=== PATIENT | male | born 1975 | race Caucasian/White ===

== ENCOUNTER 2025-05-05 08:57 | Outpatient (AMB) | payer BC, SELFPAY ==
--- NOTE | 2025-05-05 08:58 | MHC.PC.OV ---
Vital Signs 05/05/25 09:06 Height 6 ft 3.59 in Weight 258 lb BMI 31.7 BP 142/96 H Respiration 14 Pulse 66 Pulse Source Pulse Oximeter Temp 98.2 F Temp Source Temporal Artery Scan Pulse Oximetry (%) 98 Oxygen Delivery Method Room Air Intake Visit Reasons: Establish Care/ Dr. Salgado Steel Box Toe Inserter Required: No Accompanied by: Self / Same As Patient Allergies No Known Allergies (No Known Allergies*) Allergy (Unverified 05/05/25 08:59) Tobacco use date assessed: 05/05/25 Dental Screening Dental Screen Date: 05/05/25 Did you have a dental visit in the last 12 months?: No Did you have a dental problem in the last 6 months where you did not have access to dental care?: No Was dental information given to patient?: Patient has dentist [facility] Surgical History History of colonoscopy (~12/20/22) Family History (Updated 05/05/25 @ 09:10 by KILLIAN Sorto) Father Pancreatic cancer Mother BP (high blood pressure) Alcohol abuse Social History (Updated 05/05/25 @ 09:14 by KILLIAN Sorto) Housing: House Alcohol intake: current Alcohol intake frequency: does not drink Patient Tobacco Use Status: Current everyday Tobacco user (chews tabacco) service: No Current occupational status: employed Cognitive needs: No Hearing needs: No Vision needs: Yes (reading glasses) Questionnaire PHQ-9 Over the last 2 weeks, how often have you been bothered by any of the following problems? 1. Little interest or pleasure in doing things: not at all 2. Feeling down, depressed, or hopeless: not at all 3. Trouble falling or staying asleep, or sleeping too much: not at all 4. Feeling tired or having little energy: not at all 5. Poor appetite or overeating: not at all 6. Feeling bad about yourself - or that you are a failure or have let yourself or your family down: not at all 7. Trouble concentrating on things, such as reading the newspaper or watching television: not at all 8. Moving or speaking so slowly that other people could have noticed. Or the opposite - being so fidgety or restless that you have been moving around a lot more than usual: not at all 9. Thoughts that you would be better off or of hurting yourself in some way: not at all Total score: 0 Source: Developed by Drs. Dell Buck, Anderson Chakraborty and colleagues, with an educational cong from [employer]. Thrive Questionnaire Date Thrive assessed: 05/05/25 I am a: Patient What is your living situation today?: I have a steady place to live Within the past 12 months, did the food you bought not last and you didn't have the money to get more?: Never true Within the past 12 months, did you worry whether your food would run out before you got money to buy more?: Never true Do you have trouble paying for medicines?: No Do you have trouble getting transportation to medical appointments?: No Do you have trouble paying your heating and electricity bill?: No Do you have trouble taking care of your child, family member or friend?: No Do you have trouble with day-to-day activities such as bathing, preparing meals, shopping, managing finances, etc.?: No Are you currently unemployed and looking for a job?: No Are you interested in more education?: No THRIVE Score: 0 AUDIT C Alcohol Use Questionnaire (AUDIT-C) 1. How often do you have a drink containing alcohol?: Never 3. How often do you have six or more drinks on one occasion?: Never Total Score: 0 FAUSTINO-7 AMB Questionnaire FAUSTINO-7 Date FAUSTINO - 7 assessed: 05/05/25 Feeling nervous, anxious, or on edge: 1 = Several days Not being able to stop or control worryin = Not at all Worrying too much about different things: 0 = Not at all Trouble relaxin = Several days Being so restless that it is hard to sit still: 1 = Several days Becoming easily annoyed or irritable: 1 = Several days Feeling afraid as if something awful might happen: 0 = Not at all Total FAUSTINO-7 score (0-4 normal; 5-9 mild; 10-14 moderate; 15-21 severe): 4 Source: Developed by Julieth Brar Kurt Kroenke and colleagues, with an educational cong from [employer]. Physical exam (Primary Care) Vital Signs: Last Vital Signs Temp 98.2 F 05/05/25 09:06 Pulse 66 05/05/25 09:06 Resp 14 05/05/25 09:06 BP 142/96 H 05/05/25 09:06 Pulse Ox 98 05/05/25 09:06 Oxygen Delivery Method Room Air 05/05/25 09:06 BMI result Body Mass Index 31.7 Tobacco/Smoking Status: Tobacco use Status Tobacco use date assessed 05/05/25 05/05/25 09:04 Patient Tobacco Use Status Current everyday Tobacco ( 05/05/25 09:14 chews tabacco) PHQ-9: PHQ-9 Score PHQ-9: Total score 0 05/05/25 09:13 Thrive Assessment: Date of Thrive Assessment Date Thrive assessed 05/05/25 05/05/25 09:04 Coding Level of Care Code New Pt Level 4 (80646) Complex EM visit Add On G2211 Diagnoses Fatigue R53.83 Assessment & Plan Assessment & Plan (1) Fatigue: Code(s): R53.83 - Other fatigue Plan History of Present Illness - The patient is a 49-year-old male presenting with fatigue, memory impairment, and tobacco use disorder. - Fatigue is possibly related to stress from his 's ongoing autoimmune condition. - Memory impairment affects his professional duties, with difficulty recalling names and tasks. - Tobacco use disorder involves chronic chewing tobacco use, with attempts to quit using nicotine patches. - Anxiety and depression are managed with bupropion and citalopram, with psychiatric support. - Hypertension was noted, though typically the patient reports normal blood pressure readings. - Preventative care includes a recent colonoscopy with no polyps detected. - Slow urinary stream is noted, with plans to check PSA levels. - A lipoma is present, with plans for surgical removal. 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 - He has been abstinent from alcohol for nearly six years following a history of heavy drinking. Review of Systems - General: Reports fatigue. - Neurological: Reports memory impairment. - Psychiatric: Reports anxiety and depression. - Genitourinary: Reports slow urinary stream. Physical Exam General: Cooperative and healthy appearing Nutritional Appearance: Well nourished Orientation/consciousness: Patient oriented x3 Limitations: No limitations Head: Normal to inspection General: Appearance normal, both eyes and all related structures Neck: Normal visual inspection Chest: Normal palpation of entire chest wall Respiratory: N ormal respiratory effort Neurology: Patient oriented x3, but reports memory issues such as difficulty recalling names and tasks. Results Plan - Nicotine patches prescribed for tobacco cessation, with a tapering schedule from 21 mg to 14 mg. - Continued management of anxiety and depression with bupropion and citalopram. - Blood work ordered, including testosterone levels, to be done in the morning. - PSA testing recommended due to slow urinary stream. - Neurocognitive testing discussed but not deemed necessary at this time. - Follow-up via the patient portal for any prescription issues or further questions. Discussion Notes I discussed the patient's concerns regarding fatigue, memory impairment, and tobacco use disorder. We reviewed the management of anxiety and depression with current medications. Nicotine patches were prescribed for tobacco cessation, and the importance of follow-up via the patient portal was emphasized. Neurocognitive testing was considered but not deemed necessary at this time. Blood work, including testosterone levels, was ordered, and PSA testing was recommended due to urinary symptoms. Patient Instructions - Use nicotine patches as prescribed, starting with 21 mg and tapering to 14 mg. - Continue taking bupropion and citalopram as directed. - Complete blood work, including testosterone levels, in the morning. - Schedule PSA testing for urinary symptoms. - Use the patient portal for any questions or prescription issues. Orders: Orders Testosterone, Free/Total Today R53.83 - Other fatigue PSA,Total (Free>4and<10) Today R53.83 - Other fatigue Medications: New nicotine apply 1-21 mg NICOTINE PATCH daily for 28 days; follow with 1-14 mg PATCH daily for 14 days, then 1-7mg PATCH daily for 14 days transdermal 56 patches 0RF
--- OUTSIDE RECORDS SUMMARY | 2025-05-05 09:00 | XMS_ITS | Clinical Summary ---
Author Organization [facility] Address [address] [place] [id number] Phone Care Team Providers Care Coating Line Worker Name Role Phone Unknown, Unknown Primary Care Provider Angeles turner Allergies No known active allergies Medications QUEtiapine (SEROQUEL) 50 MG tablet Take 0.5 tablets (25 mg total) by mouth nightly at bedtime. 09/18/2019 Active buPROPion (WELLBUTRIN XL) 300 MG ER 24 hr tablet Take 1 tablet (300 mg total) by mouth daily. 30 tablet 5 09/26/2019 Active gabapentin (NEURONTIN) 300 MG capsule Take 1 capsule (300 mg total) by mouth 2 (two) times a day. 60 capsule 5 09/26/2019 Active Active Problems Problem Noted Date Diagnosed Date Alcohol abuse 09/22/2019 Assessment & Plan (09/22/2019 9:48 PM EST): Patient doing well post detox and count inpatient for 30days has is presently on Vivitrol unsure if he wants to continue it did say we can do it here if so desired otherwise he does have a stringent regimen with the state to help make sure he stays not drinking Annual physical exam 03/07/2018 Assessment & Plan (03/07/2018 9:39 PM EDT): Patient overall doing well physically though still at times drinking too much and still awaiting better medications for his anxiety and depression. Urged increase regular physical activity and asked patient to contact me if he gets increased suicidal thoughts. Recurrent major depressive disorder, in partial remission 01/25/2018 Assessment & Plan (09/22/2019 9:48 PM EST): Patient on a good regimen of medications discussed possible titrating up his gabapentin depending on the time of day when he is working. Also Seroquel dose can be changed or even DC'd if he is doing well but they will be up to psychiatry. He is to see Dr. Jose Alfredo Kaminski and then has to try and find his own psychiatrist for regular follow-up Assessment & Plan (03/07/2018 9:40 PM EDT): Admit to being depressed but denies suicidal ideation times has thought what happened he would not leave his 3 kids still getting a lot of stress with his ex- presently living in housing for [facility] but has to get out Assessment & Plan (01/26/2018 12:16 AM EDT): Patient anxiety and depression slightly worse especially the anxiety he does not feel is due to the Prozac but questions if he should be on a higher dose he is failed other medications including Effexor and denies suicidal thoughts 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 He denies suicidal thoughts sees a therapist every 2 weeks when he is not working.. Did discuss possible referral to Dr. Kaminski for diagnostic and medication help if increase in the dose of Prozac to 40 mg does not help. Anxiety state 01/25/2018 Assessment & Plan (03/07/2018 9:40 PM EDT): On Wellbutrin twice daily does use alcohol as an anxiety a lytic at night there is no family history of bipolar he is under a ton of situational stress has an appointment with psych but is not till April 10 Assessment & Plan (01/26/2018 12:12 AM EDT): She admittedly back drinking for help with his anxiety there is a family history of alcoholism and has had trouble in the past including a [place] retreat self imposed stay did recommend trazodone which works from regional 25 mg dose for help for sleep instead of the alcohol. The trazodone might will help to some anxiety also. Primary insomnia 01/25/2018 Assessment & Plan (01/26/2018 12:13 AM EDT): Trazodone use recommended Immunizations Immunization Administration Dates Next Due COVID-19 (Pre-05/15) Pfizer Vaccine, mRNA, PF 06/24/2021,10/07/2020,09/16/2020 Influenza, Unspecified Formulation 05/12/2022, Tdap 09/28/2021 Social History Tobacco Use Types Packs/Day Years Used Date Smoking Tobacco: Never Smokeless Tobacco: Never Alcohol Use Standard Drinks/Week Comments Yes 0 (1 standard drink = 0.6 oz pur e alcohol) Education Answer Date Recorded Are you interested in more education? Not on padma e 11/18/2022 Are you concerned about learning? Not on file 11/18/2022 No 11/18/2022 No 11/18/2022 Digital Access Answer Date Recorded No 12/16/2022 No 12/16/2022 Reliable internet access at home? Not on file 12/16/2022 Device with a working camera? Not on file Sex and Gender Information Value Date Recorded Sex Assigned at Not on file Legal Sex Male 9:30 PM EDT Gender Identity Not on file Sexual Orientation Not on file Last Filed Vital Signs Vital Sign Reading Time Taken Comments Blood Pressure 130/86 09/11/2019 10:28 AM EST Pulse 77 09/11/2019 10:28 AM EST Temperature - - Respiratory Rate - - Oxygen Saturation 97% 09/11/2019 10:28 AM EST Inhaled Oxygen Concentration - - Weight 122.9 kg (271 lb) 09/11/2019 10:28 AM EST Height 193 cm (6' 4 ) 09/11/2019 10:28 AM EST Body Mass Index 32.99 09/11/2019 10:28 AM EST Plan of Treatment Health Maintenance Due Date Last Done Comments DEPRESSION SCREENING 1986 HEPATITIS C SCREENING 1992 HIV ONE-TIME SCREENING (18-65 YEARS) 1992 COLOGUARD 2019 COLONOSCOPY 2019 COLORECTAL CANCER SCREENING 2019 FIT TEST 2019 FOBT 2019 SIGMOIDOSCOPY 2019 VIRTUAL COLONOSCOPY 2019 PNEUMOCOCCAL VACCINES (50+ years) (1 of 1 - PCV) 2024 ZOSTER VACCINES (1 of 2) 2024 LIPID PANEL 08/02/2024 08/02/2019 INFLUENZA VACCINE (#1) 2025 2, 06/24/2021, 05/18/2020, Additional history exists COVID-19 VACCINE (4 - 2024- season) 2025 06/24/2021, 10/07/2020, 09/16/2020 Adult Td,Tdap Booster 09/29/2031 09/28/2021, 006 RSV VACCINE (1 - 1-dose 75+ series) 2049 SMOKING STATUS SCREENING (Once After 26 Yrs) Completed 09/11/2019 HEPATITIS A VACCINES Aged Out No long er eligible based on patient's age to complete this topic HIB VACCINES Aged Out No longer eligi ble based on patient's age to complete this topic MENINGOCOCCAL VACCINES (ACWY) Aged Out No longer eligible based on patient's age to complete this topic MENINGOCOCCAL VACCINES (B) Aged Out N o longer eligible based on patient's age to complete this topic Medical Devices Not on file Insurance [facility] UNITED PPO UNITED PPO UNITED PPO UNITED PPO UNITED PPO UNITED PPO UNITED PPO Member Subscriber Plan / Payer (Ef fective 2019-Present) Name:Saw Nunn Relation to Subscriber:Self Name:Saw Nunn Payer ID:[id number] (NAIC) Group ID:Not on file Type:PPO Address: [address] [place] [id number] [facility] Care Teams Coating Line Worker Relationship Specialty Start Date End Date Unknown, Unknown, PCP - General 09/24/20 Additional Source Comments The information contained in this document represents components of the legal health record. It is not the complete legal health record.[facility]
--- OUTSIDE RECORDS SUMMARY | 2025-05-05 09:00 | XMS_ITS | Clinical Summary ---
Author Organization [facility] Address [address] [place] [address] Care Team Providers Care Buffet Server Name Role Phone Calvin Chery MD Primary Care Provider [phone] Medications Medication Sig Dispensed Refills Start Date End Date Status gabapentin (NEURONTIN) 300 MG capsuleIndications:A lcohol Withdrawal Syndrome Take 1 capsule (300 mg total) by mouth 3 (three) times a day. 90 capsule 0 08/07/2019 Active buPROPion (WELLBUTRIN XL) 300 MG 24 hr tabletIndications:Ma iman Depressive Disorder Take 1 tablet (300 mg total) by mouth daily. 30 tablet 0 08/08/2019 Active QUEtiapine (SEROquel) 25 MG tabletIndications:Ma iman Depressive Disorder One Tablet PO QAM and Three Tablets PO QHS 120 tablet 0 08/07/2019 Active nicotine (NICODERM CQ) 21 MG/24HRIndications:N icotine Dependence Place 1 patch onto the skin daily. 28 patch 0 08/08/2019 Active methocarbamol (ROBAXIN) 500 MG tabletIndications:Mu sculoskeletal Pain Take 1 tablet (500 mg total) by mouth 3 (three) times a day as needed. 60 tablet 0 08/07/2019 Active Active Problems Problem Noted Date Diagnosed Date MDD (major depressive disord er), recurrent severe, without psychosis 08/01/2019 Alcohol use disorder, severe, dependence 020 Chewing tobacco nicotine dependence 08/01/2019 Social History Tobacco Use Types Packs/Day Years Used Date Smoking Tobacco: Former Smokeless Tobacco: Current Chew Tobacco Cessation:Ready to Q uit: No; Counseling Given: Yes Alcohol Use Standard Drinks/Week Comments Yes 80 (1 standard drink = 0.6 oz pure alcohol) increased over the past two to three weeks Sex and Gender Information Value Date Recorded Sex Assigned at Male 08/01/2019 4:34 PM EST Gender Identity Male 08/01/2019 5:27 PM EST Sexual Orientation Straight 08/01/2019 5: 27 PM EST Job Start Date Occupation Industry Not on file Not on file Not on file Last Filed Vital Signs Vital Sign Reading Time Taken Comments Blood Pressure 139/79 08/07/2019 7:44 AM EST Pulse 90 08/07/2019 7:44 AM EST Temperature 36.2 C (97.1 F) 08/07/2019 7:43 AM EST Respiratory Rate 18 08/07/2019 7:44 AM EST Oxygen Saturation 99% 08/07/2019 7:44 AM EST Inhaled Oxygen Concentration - - Weight 120.2 kg (265 lb) 08/05/2019 5:39 PM EST Height 190.5 cm (6' 3 ) 08/05/2019 5:39 PM EST Body Mass Index 33.12 08/05/2019 5:39 PM EST Plan of Treatment Not on file Advance Directives For more information, please contact: [phone] Latest Code Status on File Code Status Date Activated Date Inactivated Comments Full Code 08/01/2019 5:42 PM 08/07/2019 6:52 PM This c ode status was ascertained in the following way: per unit protocol. Care Teams Buffet Server Relationship Specialty Start Date End Date Calvin Chery MD [address] [place] [address] [facility] [place] [phone] PCP - General Family Medicine 08/01/19
--- OUTSIDE RECORDS SUMMARY | 2025-05-05 09:00 | XMS_ITS ---
Author Name [facility] Organization Unknown Care Team Organization Name Specialty Phone Email Start Date End Da te [employer] Insurance 07/08/2024
--- OUTSIDE RECORDS SUMMARY | 2025-05-05 09:00 | XMS_ITS | Clinical Summary ---
Author Organization [facility] Address [address] [place] [address] Care Team Providers Care Arcade Technician Name Role Phone Calvin Chery MD Primary Care Provider Surgical History Surgery Date Site/Laterality Comments BACK SURGERY PROCEDURE:BACK SURGERY;COMMENT:L4, L5, herniated discectomy January, Medical History Medical History Date Comments Asthma DX:Asthma;COMMEN T:childhood no S&S presently Sciatic leg pain 2015 DX:Sciatic leg pain Social History Tobacco Use Types Packs/Day Years Used Date Smoking Tobacco: Former Smokeless Tobacco: Current Alcohol Use Standard Drinks/Week Comments Yes 80 (1 standard drink = 0.6 oz pu re alcohol) Sex and Gender Information Value Date Recorded Sex Assigned at Not on file Legal Sex Male 10:28 PM EST Gender Identity Not on file Sexual Orientation Not on file Obstetrics History Plan of Treatment Health Maintenance Due Date Last Done Comments Colorectal Cancer Screening: Colonoscopy 1974 DTaP,Tdap,and Td Vaccines (1 - Tdap) 1993 Hepatitis A Vaccines (1 of 2 - Risk 2-dose series) 1993 Hepatitis B Vaccines (1 of 3 - 19+ 3-dose series) 1993 Pneumococcal Vaccine: 50+ Ye ars (1 of 2 - PCV) 1993 HIV Screening 06/26/2022 Hepatitis C Screening 06/26/2022 Social Influencers of Health Screening 06/26/2022 Zoster Vaccines (1 of 2) 2024 Depression Screening 07/24/2024 Cholesterol Screening (Lipid Panel) 08/02/2024 08/02/2019 COVID-19 Vaccine (1 - 2023-2 5 season) 2025 Influenza Vaccine (#1) 2025 RSV Immunization Adult Patie nts (1 - 1-dose 75+ series) 2049 HIB Vaccines Aged Out No longer eligi ble based on patient's age to complete this topic HPV Vaccines Aged Out No longer eligi ble based on patient's age to complete this topic IPV Vaccines Aged Out No longer eligi ble based on patient's age to complete this topic MMR Vaccines Aged Out No longer eligi ble based on patient's age to complete this topic Meningococcal ACWY Vaccine Aged Out N o longer eligible based on patient's age to complete this topic Meningococcal B Vaccine Aged Out No l onger eligible based on patient's age to complete this topic RSV Immunization Patients Un crys 20 months Aged Out No longer eligible b ased on patient's age to complete this topic Varicella Vaccines Aged Out No longer eligible based on patient's age to complete this topic Care Teams Arcade Technician Relationship Specialty Start Date End Date Calvin Chery MD [address] [facility] [place] [phone] PCP - General Family Medicine 08/01/19
[2025-05-05 09:06] VITALS: BP 142/96; PULSE 66; RESP 14; TEMP 36.8; O2SAT 98; BMI 31.7
== END 2025-05-05 09:28 | disposition home or self-care (01) ==
LOC: HO.HMCSH 08:57
PROVIDERS: PCP Internal Medicine; Visit Provider Internal Medicine
DX: R53.83 Other fatigue (principal)

== ENCOUNTER 2025-05-21 10:39 | Outpatient (REF) | payer BC, SELFPAY ==
[2025-05-21 11:46] LABS: Hematocrit 44.2 % (42.0-52.0); Hemoglobin 14.9 g/dl (14.0-18.0); Mean Corpuscular HGB Conc 33.7 g/dl (31.0-36.0); Mean Corpuscular Hemoglobin 30.2 pg (27.0-33.0); Mean Corpuscular Volume 89.5 fL (80.0-98.0); NRBC Abs Auto 0.000 X10*3/uL (0.0-0.012); NRBC Pct Auto 0.0 /100WBC (0.0-0.2); Platelet Count 207 X10*3/uL (160-400); Red Blood Count 4.94 X10*6/uL (4.60-5.80); White Blood Count 4.9 X10*3/uL (4.8-10.8)
[2025-05-21 12:23] LABS: Appearance Urine Clear; Glucose Urine UA Negative (Negative); PH 5.5 (5.0-9.0); Specific Gravity - Urine 1.020 (1.005-1.025)
[2025-05-21 12:36] LABS: Alanine Aminotransferase 32 U/L (0-40); Albumin Level 4.7 g/dL (3.5-5.0); Alkaline Phosphatase 61 U/L (39-117); Anion Gap 10 (12-20); Aspartate Amino Transferase 29 U/L (5-37); Blood Urea Nitrogen 20 mg/dL (9-16); Calcium 9.2 mg/dL (8.4-10.2); Carbon Dioxide 29 mmol/L (22-29); Chloride 108 mmol/L (96-108); Cholesterol 191 mg/dL (<200); Estimated Glomerular Filt Rate > 60; HDL Cholesterol 30 mg/dL (>40); Lipase 208 U/L (8-78); PSA,Total (Free>4and<10) 0.50 ng/mL (0.00-4.00); Potassium 4.5 mmol/L (3.3-5.1); Sodium 142 mmol/L (135-145); Total Protein 6.7 g/dL (6.5-8.0); Triglycerides 81 mg/dL (<150)
[2025-05-21 12:41] LABS: Thyroid Stimulating Hormone 1.67 uIU/mL (0.32-4.0)
--- OUTSIDE RECORDS SUMMARY | 2025-05-21 13:14 | XMS_ITS | Clinical Summary ---
Author Organization [facility] Address [address] [place] [address] Care Team Providers Care Motor Equipment Commanding Officer Name Role Phone Calvin Chery MD Primary Care Provider [phone] Medications Medication Sig Dispensed Refills Start Date [...] Advance Directives For more information, please contact: [phone] Latest Code Status on File Code Status Date Activated Date Inactivated Comments Full Code 08/01/2019 5:42 PM 08/07/2019 6:52 PM This c ode status was ascertained in the following way: per unit protocol. Care Teams Motor Equipment Commanding Officer Relationship Specialty Start Date End Date Calvin Chery MD [address] [place] [address] [facility] [place] [phone] PCP - General Family Medicine 08/01/19
[2025-05-26 15:43] LABS: Testosterone, Free 63.0 pg/mL (35.0-155.0)
== END 2025-05-21 10:40 | disposition home or self-care (01) ==
LOC: HO.LAB 10:39
PROVIDERS: PCP Internal Medicine; Visit Provider Internal Medicine
DX: R53.83 Other fatigue (principal); E78.5 Hyperlipidemia, unspecified; K85.90 Acute pancreatitis without necrosis or infection, unspecified; Z12.5 Encounter for screening for malignant neoplasm of prostate
CPT/HCPCS: 36415; 80048; 80061; 80076; 81003; 83690; 84153; 84402; 84403; 84443; 85027

== ENCOUNTER 2025-05-28 12:11 | Outpatient (REF) | payer BC, SELFPAY ==
[2025-05-28 13:19] LABS: Lipase 64 U/L (8-78)
--- OUTSIDE RECORDS SUMMARY | 2025-05-28 14:53 | XMS_ITS | Clinical Summary ---
Author Organization [facility] Address [address] [place] [id number] Phone Care Team Providers Care Client Success Manager Name Role Phone Unknown, Unknown Primary Care [...] his ex- presently living in housing for [facility] but has to get out Assessment & Plan (01/26/2018 12:16 AM EDT): Patient anxiety and depression slightly worse especially the anxiety he does not feel is due to the Prozac but questions if he should be on a higher dose he is failed other medications including Effexor and denies suicidal thoughts 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 still [...] topic Medical Devices Not on file Insurance [facility] UNITED PPO UNITED PPO UNITED PPO UNITED PPO UNITED PPO UNITED PPO UNITED PPO Member Subscriber Plan / Payer (Ef fective 2019-Present) Name:Saw Nunn Relation to Subscriber:Self Name:Saw Nunn Payer ID:[id number] (NAIC) Group ID:Not on file Type:PPO Address: [address] [place] [id number] [facility] Care Teams Client Success Manager Relationship Specialty Start Date End Date Unknown, Unknown, PCP - General 09/24/20 Additional Source Comments The information contained in this document represents components of the legal health record. It is not the complete legal health record.[facility]
--- OUTSIDE RECORDS SUMMARY | 2025-05-28 14:53 | XMS_ITS | Clinical Summary ---
Author Organization [facility] Address [address] [place] [address] Care Team Providers Care Pony Trimmer Name Role Phone Calvin Chery MD Primary Care Provider Medications Medication Sig Dispensed Refills Start Date [...] Advance Directives For more information, please contact: [phone] Latest Code Status on File Code Status Date Activated Date Inactivated Comments Full Code 08/01/2019 5:42 PM 08/07/2019 6:52 PM This c ode status was ascertained in the following way: per unit protocol. Care Teams Pony Trimmer Relationship Specialty Start Date End Date Calvin Chery MD [address] [place] [address] [facility] [place] [phone] PCP - General Family Medicine 08/01/19
--- OUTSIDE RECORDS SUMMARY | 2025-05-28 14:53 | XMS_ITS | Clinical Summary ---
Author Organization [facility] Address [address] [place] [address] Care Team Providers Care Transportation Maintenance Supervisor Name Role Phone Calvin Chery MD Primary Care Provider [phone] Surgical History Surgery Date Site/Laterality Comments BACK [...] age to complete this topic Care Teams Transportation Maintenance Supervisor Relationship Specialty Start Date End Date Calvin Chery MD [address] [facility] [place] [phone] PCP - General Family Medicine 08/01/19
== END 2025-05-28 12:12 | disposition home or self-care (01) ==
LOC: HO.LAB 12:11
PROVIDERS: PCP Internal Medicine; Visit Provider Internal Medicine
DX: R74.8 Abnormal levels of other serum enzymes (principal); K85.90 Acute pancreatitis without necrosis or infection, unspecified
CPT/HCPCS: 36415; 83690; 86301